=== PATIENT | female | born 1940 | race Caucasian/White ===

== ENCOUNTER 2021-06-06 12:41 | Outpatient (CLI) | payer MEDICARE, BC | END 2021-06-06 12:42 | disposition home or self-care (01) | LOC: CSHMAMMO 12:41 | PROVIDERS: ATTEND Family Medicine | DX: Z13.820 Encounter for screening for osteoporosis (principal); Z78.0 Asymptomatic menopausal state; E28.39 Other primary ovarian failure; M81.0 Age-related osteoporosis without current pathological fracture; M85.852 Other specified disorders of bone density and structure, left thigh | CPT/HCPCS: 77080 ==